=== PATIENT | female | born 1995 | race American Indian/Alaskan Native ===

== ENCOUNTER 2020-12-11 20:15 | Emergency (ER) | payer SELFPAY ==
[2020-12-11 21:37] VITALS: BP 125/70
[2020-12-11] MEDS ORDERED: IBUPROFEN 800 MG TAB PO ONE (21:42)
== END 2020-12-12 00:30 | disposition left against medical advice (07) ==
LOC: ED 20:15
DX: K59.00 Constipation, unspecified (principal); Z53.21 Procedure and treatment not carried out due to patient leaving prior to being seen by health care provider

== ENCOUNTER 2021-07-11 14:26 | Emergency (ER) | payer OTHER ==
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
[2021-07-11 16:27] VITALS: BP 105/68
== END 2021-07-11 16:30 | disposition home or self-care (01) ==
LOC: ED 14:26
DX: M25.562 Pain in left knee (principal)
CPT/HCPCS: 99282